=== PATIENT | female | born 1940 | race Caucasian/White ===

== ENCOUNTER 2017-12-25 09:48 | Emergency (ER) | payer MEDICARE ==
[~2017-12-25] VITALS: Ht 170.2 cm; Wt 66.0 kg
[2017-12-25 10:13] VITALS: BP 119/86; PULSE 149; RESP 16; TEMP 97.6; O2SAT 99
--- NOTE | 2017-12-25 10:13 | PD ---
HPI Chief Complaint: fast heartbeat Time Seen by Provider: 10:05 Travel History International Travel<30 days: No Contact w/Intl Traveler<30days: No Traveled to known affect area: No History of Present Illness HPI This 77-year-old female is sent from Dr. Oseguera's office because of fast heartbeat. She went there for a routine visit. He says seemed he noticed that her heartbeat was fast when he was examining her in the ordered a EKG which showed that she was having rapid atrial fibrillation. She admits to some palpitations though she says she gets them occasionally. She says they started after he told her her heart rate was fast. She has been had a Holter on 2 separate occasions which was apparently negative. She has no history of heart disease. She does have a history of hypertension and takes lisinopril and hydrochlorothiazide. She does take an aspirin every day. He does not smoke. She is not short of breath. She has not been hospitalized since childbirth [facility], [facility] Past Medical History Hypertension: Yes Past Surgical History Tonsillectomy: Yes (AGE 15) Social History Alcohol Use: No Tobacco Use: No Allergies-Medications (Allergen,Severity, Reaction): Coded Allergies: tetanus immune globulin (Unverified Allergy, Mild, ARM SWELLED, 12/25/17) Reported Meds & Prescriptions Reported Meds & Active Scripts Active Eliquis (Apixaban) 5 Mg Tab 5 Mg PO BID Cardizem CD 24 HR (Diltiazem CD 24 HR) 240 Mg Caper 240 Mg PO DAILY Reported Hydrochlorothiazide 25 Mg Tab 25 Mg PO DAILY Lisinopril 10 Mg Tab 10 Mg PO DAILY Aspirin EC (Aspirin) 81 Mg Tabdr 81 Mg PO DAILY Review of Systems General / Constitutional: No: Fever, Chills Eyes: No: Diploplia, Blurred Vision HENT: No: Headaches Cardiovascular: Positive: Palpitations, No: Chest Pain or Discomfort Respiratory: No: Cough, Shortness of Breath Gastrointestinal: No: Vomiting, Diarrhea Genitourinary: No: Urgency, Frequency Musculoskeletal: No: Myalgias, Arthralgias Skin: No Rash, No Itching Neurologic: No: Weakness, Syncope Endocrine: No: Heat Intolerance, Cold Intolerance Hematologic/Lymphatic: No: Easy Bruising Physical Exam Narrative GENERAL well-developed female SKIN: Focused skin assessment warm/dry. HEAD: Atraumatic. Normocephalic. EYES: Pupils equal and round. No scleral icterus. No injection or drainage. ENT: No nasal bleeding or discharge. Mucous membranes pink and moist. NECK: Trachea midline. No JVD. CARDIOVASCULAR: Rapid irregular rate and rhythm. No murmur appreciated. RESPIRATORY: No accessory muscle use. Clear to auscultation. Breath sounds equal bilaterally. GASTROINTESTINAL: Abdomen soft, non-tender, nondistended. Hepatic and splenic margins not palpable. MUSCULOSKELETAL: No obvious deformities. No clubbing. No cyanosis. No edema. NEUROLOGICAL: Awake and alert. No obvious cranial nerve deficits. Motor grossly within normal limits. Normal speech. PSYCHIATRIC: Appropriate mood and affect; insight and judgment normal. Data Data Last Documented VS Vital Signs Date Time Temp Pulse Resp B/P (MAP) Pulse Ox O2 Delivery O2 Flow Rate FiO2 12/25/17 11:45 109 16 124/89 (101) 98 12/25/17 10:40 Room Air 12/25/17 10:13 97.6 Orders Orders Complete Blood Count With Diff (12/25/17 10:05) Basic Metabolic Panel (Bmp) (12/25/17 10:05) Troponin I (12/25/17 10:05) B-Type Natriuretic Peptide (12/25/17 10:05) Prothrombin Time / Inr (Pt) (12/25/17 10:05) Act Partial Throm Time (Ptt) (12/25/17 10:05) Magnesium (Mg) (12/25/17 10:05) Thyroid Stimulating Hormone (12/25/17 10:05) Chest, Single Ap (12/25/17 10:05) Diltiazem (Cardizem) (12/25/17 10:15) Ed Discharge Order (12/25/17 11:30) Electrocardiogram (12/25/17 09:57) Labs Laboratory Tests Test 12/25/17 10:05 White Blood Count 9.4 TH/MM3 Red Blood Count 4.57 MIL/MM3 Hemoglobin 13.6 GM/DL Hematocrit 41.6 % Mean Corpuscular Volume 91.2 FL Mean Corpuscular Hemoglobin 29.8 PG Mean Corpuscular Hemoglobin Concent 32.6 % Red Cell Distribution Width 12.4 % Platelet Count 269 TH/MM3 Mean Platelet Volume 8.7 FL Neutrophils (%) (Auto) 59.0 % Lymphocytes (%) (Auto) 31.9 % Monocytes (%) (Auto) 5.3 % Eosinophils (%) (Auto) 2.7 % Basophils (%) (Auto) 1.1 % Neutrophils # (Auto) 5.5 TH/MM3 Lymphocytes # (Auto) 3.0 TH/MM3 Monocytes # (Auto) 0.5 TH/MM3 Eosinophils # (Auto) 0.3 TH/MM3 Basophils # (Auto) 0.1 TH/MM3 CBC Comment DIFF FINAL Differential Comment Prothrombin Time 10.8 SEC Prothromb Time International Ratio 1.1 RATIO Activated Partial Thromboplast Time 28.6 SEC Blood Urea Nitrogen 14 MG/DL Creatinine 0.88 MG/DL Random Glucose 102 MG/DL Calcium Level 9.5 MG/DL Magnesium Level 2.3 MG/DL Sodium Level 139 MEQ/L Potassium Level 3.6 MEQ/L Chloride Level 106 MEQ/L Carbon Dioxide Level 25.9 MEQ/L Anion Gap 7 MEQ/L Estimat Glomerular Filtration Rate 62 ML/MIN Troponin I LESS THAN 0.02 NG/ML B-Type Natriuretic Peptide 201 PG/ML Thyroid Stimulating Hormone 3rd Gen 1.660 uIU/ML MDM Medical Decision Making Medical Screen Exam Complete: Yes Emergency Medical Condition: Yes Medical Record Reviewed: Yes Differential Diagnosis EKG shows atrial fibrillation with rapid ventricular response. Consideration was given to Cardizem drip however the patient has expressed a preference for outpatient treatment and I initiated an oral dose of Cardizem. With is come down to about 100. I have discussed the case with Dr. Mcneill. See her on in follow-up. He does recommend Eliquis and 240 of Cardizem CD daily. He will follow up with her on Narrative Course Patient will be released with prescription for Cardizem CD 240 daily as well as Eliquis. She is to see Dr. Mcneill Diagnosis Primary Impression: Atrial fibrillation Referrals: Иван Mcneill MD Scripts Apixaban (Eliquis) 5 Mg Tab 5 MG PO BID for Blood Clot Prevention, #60 TAB 0 Refills Prov: Tc Rich MD 12/25/17 Diltiazem CD 24 HR (Cardizem CD 24 HR) 240 Mg Caper 240 MG PO DAILY, #30 CAP 0 Refills Prov: Tc Rich MD 12/25/17 Disposition: 01 DISCHARGE HOME Condition: Stable Tc Rich MD Dec 25, 2017 10:13
[2017-12-25] MEDS ORDERED: DILTIAZEM HCL 60 MG TAB PO ONE (10:15)
[2017-12-25 10:18] LABS: AUTOMATED NEUTROPHIL # 5.5 TH/MM3 (1.8-7.7); BASOPHIL # 0.1 TH/MM3 (0-0.2); BASOPHIL % 1.1 % (0.0-2.0); EOSINOPHIL # 0.3 TH/MM3 (0-0.4); EOSINOPHIL % 2.7 % (0.0-4.0); HEMATOCRIT 41.6 % (35.0-46.0); HEMOGLOBIN 13.6 GM/DL (11.6-15.3); LYMPH % 31.9 % (9.0-44.0); MEAN CELL VOLUME 91.2 FL (80.0-100.0); MEAN CORPUSCULAR HEMOGLOBIN 29.8 PG (27.0-34.0); MEAN CORPUSCULAR HGB CONC 32.6 % (32.0-36.0); MEAN PLATELET VOLUME 8.7 FL (7.0-11.0); MONO % 5.3 % (0.0-8.0); MONOCYTE # 0.5 TH/MM3 (0-0.9); PLATELET COUNT 269 TH/MM3 (150-450); RED BLOOD COUNT 4.57 MIL/MM3 (4.00-5.30); RED CELL DISTRIBUTION WIDTH 12.4 % (11.6-17.2); WHITE BLOOD COUNT 9.4 TH/MM3 (4.0-11.0)
[2017-12-25 10:25] VITALS: BP 121/87; PULSE 122; RESP 16; O2SAT 99
[2017-12-25 10:26] LABS: CHLORIDE 106 MEQ/L (98-107); SODIUM (NA) 139 MEQ/L (136-145)
[2017-12-25 10:29] LABS: CALCIUM 9.5 MG/DL (8.5-10.1)
[2017-12-25 10:30] LABS: BICARBONATE 25.9 MEQ/L (21.0-32.0); BLOOD UREA NITROGEN 14 MG/DL (7-18); GLUCOSE,RANDOM 102 MG/DL (74-106); INTERNATIONAL NORMALIZED RATIO 1.1 RATIO; MAGNESIUM 2.3 MG/DL (1.5-2.5); PROTHROMBIN TIME - PATIENT 10.8 SEC (9.8-11.6)
[2017-12-25 10:33] LABS: CREATININE 0.88 MG/DL (0.50-1.00); GLOMERULAR FILTRATION RATE 62 ML/MIN (>89)
[2017-12-25] MEDS ORDERED: ASPI81TA23 PO (10:35)
[2017-12-25] MEDS ORDERED: LISI10TA3 PO (10:35)
[2017-12-25] MEDS ORDERED: HYDR25TA5 PO (10:35)
--- NOTE | 2017-12-25 10:35 | RADRPT ---
EXAM DATE/TIME: 12/25/2017 10:27 [facility] COMPARISON: No previous studies available for comparison. INDICATIONS : Palpatations. MEDICAL HISTORY : Hypertension. SURGICAL HISTORY : None. ENCOUNTER: Initial ACUITY: 1 day PAIN SCORE: 0/10 LOCATION: Bilateral chest FINDINGS: A single view of the chest demonstrates the lungs to be symmetrically aerated without evidence of mas s, infiltrate or effusion. The cardiomediastinal contours are unremarkable. Osseous structures are intact. CONCLUSION: Normal examination for a patient of this age. Jose G Martell MD on December 25, 2017 at 10:31 Board Certified Radiologist. This report was verified electronically.
[2017-12-25 10:38] LABS: TROPONIN I LESS THAN 0.02 NG/ML (0.02-0.05)
[2017-12-25 10:40] VITALS: BP 133/92; PULSE 115; RESP 16; O2SAT 99
[2017-12-25] MEDS ORDERED: APIX5TAB PO (11:28)
[2017-12-25] MEDS ORDERED: CARD240C6 PO (11:28)
[2017-12-25 11:45] VITALS: BP 124/89
--- NOTE | 2017-12-26 00:16 | EKG ---
Date Performed: 12/25/2017 Time Performed: 09:57:41 PTAGE: 77 years EKG: ATRIAL FIBRILLATION WITH RAPID VENTRICULAR RESPONSE NONSPECIFIC ST & T-WAVE ABNORMALITY ABN ORMAL RHYTHM ECG NO PREVIOUS TRACING DOCTOR: Antonio Angela Interpretating Date/Time 12/26/2017 00:14:25
== END 2017-12-25 11:58 | disposition home or self-care (01) ==
LOC: PHED 09:48
DX: I48.91 Unspecified atrial fibrillation (principal); I10 Essential (primary) hypertension; Z79.82 Long term (current) use of aspirin; Z79.899 Other long term (current) drug therapy
CPT/HCPCS: 71045; 80048; 83735; 83880; 84443; 84484; 85025; 85610; 85730; 93005; 99285